=== PATIENT | male | born 1950 | race Caucasian/White ===

== ENCOUNTER 2019-08-24 16:23 | Emergency (ER) | payer SELFPAY ==
--- NOTE | 2019-08-24 16:41 | ER Document Report ---
ED Medical Screen (RME) - General Chief Complaint: Back Pain Stated Complaint: FALL Time Seen by Provider: 08/24/19 16:32 Mode of Arrival: Ambulatory Information source: Patient Notes: Patient was at a hotel and reclining in a chair. Patient states that the chair broke and in the back rail hit his lower back area. Patient reports very minimal tenderness. Patient states that he came at the insistence of the hotel. I have greeted and performed a rapid initial assessment of this patient. A comprehensive ED assessment and evaluation of the patient, analysis of test results and completion of the medical decision making process will be conducted by additional ED providers. - Related Data Allergies/Adverse Reactions: cephalexin [From Keflex] Allergy (Verified 08/24/19 16:40) Past Medical History - Social History Chew tobacco use (# tins/day): No Frequency of alcohol use: None Drug Abuse: None Physical Exam - Back Notes: Lower lumbar tenderness, no midline step-off or deformity
--- NOTE | 2019-08-24 17:48 | RADIOLOGY REPORT (SQ) ---
EXAM DESCRIPTION: L SPINE WHOLE COMPLETED DATE/TIME: 08/24/2019 5:24 pm REASON FOR STUDY: low back pain, fall chair broke COMPARISON: None. NUMBER OF VIEWS: Five views including obliques. TECHNIQUE: AP, lateral, oblique, and sacral radiographic images acquired of the lumbar spine. LIMITATIONS: None. FINDINGS: MINERALIZATION: Normal. SEGMENTATION: Normal. No transitional anatomy. ALIGNMENT: Levoconvex curvature of the midthoracic spine. VERTEBRAE: Mild posterior wedging of the L5 vertebral body. DISCS: Severe multilevel degenerative changes consisting of intervertebral disc space narrowing, melvin inal osteophyte formation, endplate changes and facet arthrosis. POSTERIOR ELEMENTS: Pedicles and facets are intact. No pars defect or posterior arch defects. HARDWARE: None in the spine. PARASPINAL SOFT TISSUES: Normal. PELVIS: Intact as visualized. No fractures or worrisome bone lesions. SI joints intact. OTHER: No other significant finding. IMPRESSION: Mild L5 vertebral body posterior wedging, which may represent an age indeterminate compr ession fracture or sequela from severe degenerative changes. Correlative with physical exam. TECHNICAL DOCUMENTATION: JOB ID: [id number]- All Rights Reserved Reading location - IP/workstation name: [email or web address]
--- NOTE | 2019-08-24 18:05 | ER Document Report ---
HPI - HPI Time Seen by Provider: 08/24/19 16:32 Pain Level: 1 Notes: Patient is a 69-year-old male with history of hypertension who presents complaining of mild low back pain status post injury at a hotel this afternoon. Patient states that he went to recline in a recliner while watching the football game and the back part of the recliner became unconnected causing him to fall backwards injuring his lower back off of the piece of wood at the base of the posterior seat. Patient states that he did not hit his head or lose conscious. He has been able to ambulate without difficulty since then. The pain does not radiate. He is urinating normally. No history of diabetes or IV drug abuse. No history of spinal abscess. He does not want anything for his discomfort at this time. Denies any headache, fever, head injury, neck pain, changes in vision/speech/mentation/hearing, URI, sore throat, chest pain, palpitations, syncope, cough, shortness of breath, wheeze, dyspnea, abdominal pain, nausea/vomiting/diarrhea, urinary retention, dysuria, hematuria, loss of control of bowel or bladder, numbness/tingling, saddle anesthesia, muscle paralysis/weakness, or rash. - ROS Systems Reviewed and Negative: Yes All other systems reviewed and negative - CONSTITUTIONAL Constitutional: DENIES: Fever, Chills - EENT EENT: DENIES: Sore Throat, Ear Pain, Eye problems - NEURO Neurology: DENIES: Headache, Weakness, Vision blurred, Dizzinesss / Vertigo - CARDIOVASCULAR Cardiovascular: DENIES: Chest pain - RESPIRATORY Respiratory: DENIES: Trouble Breathing, Coughing - GASTROINTESTINAL Gastrointestinal: DENIES: Abdominal Pain, Black / Bloody Stools - URINARY Urinary: DENIES: Dysuria, Urgency, Frequency - MUSCULOSKELETAL Musculoskeletal: DENIES: Extremity pain Past Medical History - General Information source: Patient - Social History Smoking Status: Never Smoker Chew tobacco use (# tins/day): No Frequency of alcohol use: None Drug Abuse: None Family History: Reviewed & Not Pertinent Patient has suicidal ideation: No Patient has homicidal ideation: No Vertical Provider Document - CONSTITUTIONAL Agree With Documented VS: Yes Notes: PHYSICAL EXAMINATION: GENERAL: Well-appearing, well-nourished and in no acute distress. LUNGS: Breath sounds clear to auscultation bilaterally and equal. No wheezes rales or rhonchi. HEART: Regular rate and rhythm without murmurs, rubs, gallops. ABDOMEN: Soft, nontender, nondistended abdomen. No guarding, no rebound. Normal bowel sounds present. No CVA tenderness bilaterally. No pulsatile mass Musculoskeletal: LE's b/l: FROM to passive/active. Strength 5+/5. No deficits noted. No bony tenderness of extremities. Back: FROM to passive/active. Strength 5+/5. No vertebral point tenderness, stepoffs, or deformities. No other bony tenderness, erythema, swelling, or ecchymosis. SLR negative b/l. + mild tenderness to the L-paraspinal mm b/l and midline. No SI jt tenderness. No foot drop Extremities: No cyanosis, clubbing, or edema b/l. Peripheral pulses 2+. Capillary refill less than 2 seconds. NEUROLOGICAL: Normal speech, normal gait. Normal sensory, motor exams. Reflexes 2+ b/l. PSYCH: Normal mood, normal affect. SKIN: Warm, Dry, normal turgor, no rashes or lesions noted. Course - Re-evaluation Re-evalutation: 08/24/19 18:04 Patient has an age indeterminate posterior mild compression fracture at L5 on x- ray. We will obtain a CT scan to further evaluate acuity. Pt does not want any pain medicine at this time. 08/24/19 18:52 Patient is an afebrile, well-hydrated, 69-year-old male who presents to the ED with low back pain, suspect benign. Vitals are acceptable. PE is otherwise unremarkable for any focal neurological deficits. CT was unremarkable for any acute pathology, but did note arthritic changes and severe diverticulosis w/o diverticulitis. He has no significant tachycardia, tachypnea, or hypoxia. He is nontoxic-appearing and is tolerating p.o. without difficulties. There are no signs of infection. No other red flag symptoms noted. Declined pain medicine. No other labs or imaging warranted at this time based on H&P. Low suspicion for any meningitis, fracture, expanding/ruptured AAA, cauda equina syndrome, epidural mass lesion/abscess, herniated disc causing severe spinal stenosis, or other systemic infection at this time. Patient is aware that his condition can change from initial presentation and that he needs monitor symptoms closely for any acute changes. Conservative measures otherwise for symptoms. Recheck with your PCM in 3-5 days. Consider consult with orthopedic/physical therapy. Return to the ED with any worsening/concerning symptoms otherwise as reviewed discharge. Patient is in agreement. Discharge - Discharge Clinical Impression: Low back pain Qualifiers: Chronicity: acute Back pain laterality: bilateral Sciatica presence: without sciatica Qualified Code(s): M54.5 - Low back pain Condition: Stable Disposition: HOME, SELF-CARE Instructions: Low Back Pain ([facility]) Additional Instructions: Rest, Ice Tylenol/ibuprofen as needed Light stretches daily Strength exercises as able Moist heat and massage may help F/u with your PCP in 3-5 days for a recheck Consider consult(s) with Orthopedics/physical therapy for ongoing/worsening symptoms Return to the ED with any worsening symptoms and/or development of fever, headache, chest pain, palpitations, syncope, shortness of breath, trouble breathing, abdominal pain, n/v/d, blood in stool/urine, loss of control of bowel/bladder, urinary retention, muscle weakness/paralysis, saddle anesthesia, numbness/tingling, or other worsening symptoms that are concerning to you. Forms: Elevated Blood Pressure Referrals: [facility] ([place] [Provider Group] - Follow up as needed
--- NOTE | 2019-08-24 18:50 | RADIOLOGY REPORT (SQ) ---
EXAM DESCRIPTION: CT LUMBAR SPINE WITHOUT COMPLETED DATE/TIME: 08/24/2019 6:24 pm REASON FOR STUDY: further eval possible wedge fracture for acuity COMPARISON: L-spine radiographs earlier performed on 08/24/2019 TECHNIQUE: Axial images acquired through the lumbar spine without intravenous contrast. Images revi ewed with lung, soft tissue and bone windows. Reconstructed coronal and sagittal MPR images reviewed . All images stored on PACS. All CT scanners at this facility use dose modulation, iterative reconstruction, and/or weight based d osing when appropriate to reduce radiation dose to as low as reasonably achievable (ALARA). [facility]: Dose Right [facility]: CareDose [facility]: Dose Right [facility]: Teradose 4D [facility]: [employer] RADIATION DOSE: mGy. LIMITATIONS: None. FINDINGS: SEGMENTATION: Normal. No transitional anatomy. ALIGNMENT: Normal. VERTEBRAL BODIES: Mild posterior wedging of the L5 vertebral body with corresponding endplate scleros is and marginal osteophyte formation. No acute fracture identified. DISCS: Moderate to severe intervertebral disc space narrowing at all lumbar levels, although most pre valent at L3-4 and L5-S1. Study limited by lack of intrathecal contrast. PEDICLES, TRANSVERSE PROCESSES: No fractures. No dislocation. No acute findings. FACETS, POSTERIOR ELEMENTS: No fractures. No dislocation. No spinal stenosis. Multilevel facet art hrosis. HARDWARE: None in the spine. VISUALIZED RIBS: No fractures. SOFT TISSUES: Severe sigmoid colon diverticular disease without pericolonic inflammatory fat strandin g. Calcified atherosclerotic changes of the infrarenal abdominal aorta and common iliac arteries. OTHER: No other significant finding. IMPRESSION: No acute fracture of the lumbar spine. Mild posterior wedging of the L5 vertebral body most likely related to corresponding severe L5-S1 degenerative changes. Severe sigmoid diverticulosis without evidence of acute diverticulitis. TECHNICAL DOCUMENTATION: JOB ID: [id number] Quality ID # [id number]: Final reports with documentation of one or more dose reduction techniques (e.g., Au tomated exposure control, adjustment of the mA and/or kV according to patient size, use of iterative reconstruction technique) 2010 [employer]- All Rights Reserved Reading location - IP/workstation name: [email or web address]
[2019-08-24 19:02] VITALS: BP 149/87
== END 2019-08-24 19:02 | disposition home or self-care (01) ==
LOC: ER 16:23
DX: M54.5 Low back pain (principal); W07.XXXA Fall from chair, initial encounter; Y93.89 Activity, other specified; Y92.59 Other trade areas as the place of occurrence of the external cause; M47.9 Spondylosis, unspecified; K57.30 Diverticulosis of large intestine without perforation or abscess without bleeding
CPT/HCPCS: 72110; 72131; 99284